=== PATIENT | male | born 1980 | race Caucasian/White ===

== ENCOUNTER 2020-02-10 08:29 | Outpatient (REF) | payer OTHER, SELFPAY ==
[2020-02-10 11:47] LABS: Alanine Aminotransferase 33 U/L (0-40); Albumin Level 4.5 g/dL (3.5-5.0); Alkaline Phosphatase 60 U/L (39-117); Anion Gap 12 (12-20); Aspartate Amino Transferase 32 U/L (5-37); Bilirubin Total 0.8 mg/dL (0.0-1.0); Blood Urea Nitrogen 15 mg/dL (9-16); Calcium 8.6 mg/dL (8.4-10.2); Carbon Dioxide 29 mmol/L (22-29); Chloride 107 mmol/L (96-108); Cholesterol 169 mg/dL; Estimated Glomerular Filt Rate > 60; Glucose Fasting 97 mg/dL (60-99); HDL Cholesterol 56 mg/dL; LDL Cholesterol Calculated 100 mg/dl; Potassium 4.4 mmol/l (3.3-5.1); Sodium 144 mmol/L (135-145); Total Protein 6.8 g/dL (6.5-8.0); Triglycerides 68 mg/dL
== END 2020-02-10 08:30 | disposition home or self-care (01) ==
LOC: HO.HMGCLDS 08:29
PROVIDERS: PCP Nurse Practitioner Family; Visit Provider Nurse Practitioner Family
DX: Z00.00 Encounter for general adult medical examination without abnormal findings (principal)
CPT/HCPCS: 80053; 80061; 82306; 84443

== ENCOUNTER 2020-09-11 12:28 | Outpatient (REF) | payer OTHER, SELFPAY ==
--- NOTE | ~2020-09-11 | XR_ITS ---
EXAMINATION: XR TIBIA AND FIBULA, RIGHT CLINICAL INFORMATION: Pain right lower leg COMPARISON: None TECHNIQUE: AP and lateral views of the right tibia and fibula were obtained. FINDINGS: There is no visible acute fracture, dislocation subluxation. No bony abnormality. The soft tissues are normal. Limit visualization of right knee joint and ankle joint appears unremarkable. XR/XR tibia fibula RT 2V IMPRESSION: Unremarkable right tibia and fibula.
== END 2020-09-11 12:29 | disposition home or self-care (01) ==
LOC: HO.HMGCX 12:28
PROVIDERS: PCP Nurse Practitioner Family; Visit Provider Nurse Practitioner Family
DX: M79.661 Pain in right lower leg (principal)
CPT/HCPCS: 73590

== ENCOUNTER 2021-07-08 08:36 | Outpatient (REF) | payer OTHER, SELFPAY ==
--- NOTE | ~2021-07-08 | XR_ITS ---
EXAMINATION: XR CHEST CLINICAL INFORMATION: Pleural effusion COMPARISON: None TECHNIQUE: 2 views of the chest were obtained. FINDINGS: No significant abnormality is noted involving the heart, lungs, mediastinum, bony thorax or soft tissues. XR/XR chest 2V IMPRESSION: No acute disease. No pleural effusion identified.
[2021-07-08 11:18] LABS: MANUAL DIFF FLAG NO
[2021-07-08 11:37] LABS: Basophils Percent Auto 0.9 % (0-2); Eosinophils Absolute Auto 0.2 X10*3/uL (0.0-0.4); Eosinophils Percent Auto 4.5 % (0-4); Hematocrit 46.4 % (42.0-52.0); Hemoglobin 15.6 g/dl (14.0-18.0); Imm Gran Abs Auto 0.01 X10*3/uL (0.00-0.03); Imm Gran Pct Auto 0.2 % (0.0-0.4); Lymphocytes Absolute Auto 1.6 X10*3/uL (1.2-4.9); Lymphocytes Percent Auto 35.3 % (20-40); Mean Corpuscular HGB Conc 33.6 g/dl (31.0-36.0); Mean Corpuscular Hemoglobin 30.7 pg (27.0-33.0); Mean Corpuscular Volume 91.3 fL (80.0-98.0); Mean Platelet Volume 10.1 fL (9.4-12.4); Monocytes Absolute Auto 0.5 X10*3/uL (0.1-1.2); Neutrophils Absolute Auto 2.3 x10*3/uL (2.0-8.3); Neutrophils Percent Auto 49.1 % (45-73); Platelet Count 254 X10*3/uL (160-400); Red Blood Count 5.08 X10*6/uL (4.60-5.80); Red Cell Distribution Width 11.9 % (11.0-16.0); White Blood Count 4.6 X10*3/uL (4.8-10.8)
[2021-07-08 12:34] LABS: Alanine Aminotransferase 26 U/L (0-40); Albumin Level 4.5 g/dL (3.5-5.0); Alkaline Phosphatase 73 U/L (39-117); Anion Gap 11 (12-20); Aspartate Amino Transferase 32 U/L (5-37); Bilirubin Total 0.4 mg/dL (0.0-1.0); Blood Urea Nitrogen 18 mg/dL (9-16); Calcium 9.7 mg/dL (8.4-10.2); Carbon Dioxide 28 mmol/L (22-29); Chloride 107 mmol/L (96-108); Estimated Glomerular Filt Rate > 60; Glucose Random 83 mg/dL (60-115); Potassium 4.3 mmol/L (3.3-5.1); Sodium 142 mmol/L (135-145); Total Protein 7.3 g/dL (6.5-8.0)
== END 2021-07-08 08:37 | disposition home or self-care (01) ==
LOC: HO.HMGCX 08:36
PROVIDERS: PCP Nurse Practitioner Family; Visit Provider Nurse Practitioner Family
DX: J90 Pleural effusion, not elsewhere classified (principal); S22.49XA Multiple fractures of ribs, unspecified side, initial encounter for closed fracture; X58.XXXA Exposure to other specified factors, initial encounter; Y93.9 Activity, unspecified; Y92.9 Unspecified place or not applicable; Y99.8 Other external cause status
CPT/HCPCS: 36415; 71046; 80053; 85025

== ENCOUNTER 2022-01-19 11:13 | Outpatient (REF) | payer OTHER, SELFPAY ==
[2022-01-19 14:14] LABS: Appearance Urine Clear; Color Urine Yellow; Glucose Urine UA Negative (Negative); Leukocyte Esterase Urine Trace (Negative); Nitrite Urine Negative (Negative); UMIC TRIGGER UACC YES; Urine Blood Negative (Negative); Urine Ketones Negative (Negative); Urine Protein Negative (Neg-Trace)
[2022-01-19 14:15] LABS: MANUAL DIFF FLAG NO
[2022-01-19 14:18] LABS: Bacteria Urine None Seen (None Seen); Hyaline Casts Urine 0-2 /LPF (0-2); RBC Urine 0-2 /HPF (0-2); Squamous Epithelial Cell Urine 0-2 /HPF (0-2); WBC Urine 0-5 /HPF (0-5)
[2022-01-19 14:22] LABS: Basophils Absolute Auto 0.1 X10*3/uL (0.0-0.2); Eosinophils Absolute Auto 0.2 X10*3/uL (0.0-0.4); Eosinophils Percent Auto 4.2 % (0-4); Hematocrit 42.9 % (42.0-52.0); Hemoglobin 14.6 g/dl (14.0-18.0); Imm Gran Abs Auto 0.01 X10*3/uL (0.00-0.03); Imm Gran Pct Auto 0.2 % (0.0-0.4); Lymphocytes Absolute Auto 1.8 X10*3/uL (1.2-4.9); Lymphocytes Percent Auto 37.6 % (20-40); Mean Corpuscular Hemoglobin 31.6 pg (27.0-33.0); Mean Corpuscular Volume 92.9 fL (80.0-98.0); Mean Platelet Volume 10.6 fL (9.4-12.4); Monocytes Absolute Auto 0.4 X10*3/uL (0.1-1.2); Monocytes Percent Auto 7.9 % (2-11); Neutrophils Absolute Auto 2.4 x10*3/uL (2.0-8.3); Neutrophils Percent Auto 49.1 % (45-73); Platelet Count 229 X10*3/uL (160-400); Red Blood Count 4.62 X10*6/uL (4.60-5.80); White Blood Count 4.8 X10*3/uL (4.8-10.8)
[2022-01-19 14:49] LABS: Alanine Aminotransferase 23 U/L (0-40); Albumin Level 4.5 g/dL (3.5-5.0); Alkaline Phosphatase 52 U/L (39-117); Anion Gap 13 (12-20); Aspartate Amino Transferase 27 U/L (5-37); Bilirubin Total 0.8 mg/dL (0.0-1.0); Blood Urea Nitrogen 24 mg/dL (9-16); Calcium 9.7 mg/dL (8.4-10.2); Carbon Dioxide 26 mmol/L (22-29); Chloride 106 mmol/L (96-108); Cholesterol 184 mg/dL; Estimated Glomerular Filt Rate > 60; Glucose Fasting 86 mg/dL (60-99); HDL Cholesterol 44 mg/dL; LDL Cholesterol Calculated 130 mg/dl; Potassium 4.5 mmol/L (3.3-5.1); Sodium 140 mmol/L (135-145); Total Protein 6.9 g/dL (6.5-8.0); Triglycerides 51 mg/dL
== END 2022-01-19 11:14 | disposition home or self-care (01) ==
LOC: HO.HMGCLDS 11:13
PROVIDERS: PCP Nurse Practitioner Family; Visit Provider Nurse Practitioner Family
DX: Z00.00 Encounter for general adult medical examination without abnormal findings (principal)
CPT/HCPCS: 36415; 80053; 80061; 81001; 84443; 85025

== ENCOUNTER 2023-04-12 17:56 | Emergency (ER) | payer OTHER, SELFPAY ==
--- NOTE | 2023-04-12 18:11 | ED.CHESTPAIN ---
HPI - Chest Pain General Chief Complaint: Chest Pain Stated Complaint: mild chest pain Time Seen by Provider: 04/12/23 22:12 Source: patient, RN notes reviewed and old records reviewed Mode of arrival: ambulatory Limitations: no limitations History of Present Illness HPI narrative: 43-year-old male presents for evaluation of chest pain. Patient reports mild left-sided chest pain for approximately last 3 days He denies any shortness of breath. His pain is constant, unrelated to exertion He describes the pain as dull, 04/19 He denies any personal history of cardiac disease, he is a nonsmoker Denies any recent travel He reports he was diagnosed with COVID-19 last month but felt as though he had improved from that Related Data Home Medications Medication Instructions Recorded Confirmed calcium carbonate 500 mg calcium 500 mg PO DAILY 07/08/21 01/19/22 (1,250 mg) chewable tablet (Calcium 500) cholecalciferol (vitamin D3) 25 25 mcg PO DAILY 07/08/21 01/19/22 mcg/drop (1,000 unit/drop) oral drops Previous Rx's Medication Instructions Recorded oseltamivir 75 mg capsule (Tamiflu) 75 mg PO BID 5 days #10 caps 03/22/22 Allergies Allergy/AdvReac Type Severity Reaction Status Date / Time No Known Allergies Allergy Verified 04/12/23 18:14 Review of Systems Constitutional: Constitutional: Denies chills and Denies fever(s) ENT: Denies sore throat Cardiovascular: Cardiovascular: Reports chest pain, Reports chest pain at rest and Denies dyspnea Respiratory: Respiratory: Denies cough and Denies dyspnea Gastrointestinal: Gastrointestinal: Denies abdominal pain, Denies nausea and Denies vomiting Musculoskeletal: Musculoskeletal: Denies back pain Integumentary/Breasts: Skin/Breast: Denies rash PMFSH Past Medical History Onset Date is defined in the Problem List Problems that require an onset date and time if occurred within 24 hrs of arrival to the ED Aortic Dissection and Rupture; Neurologic impairment; Cardiopulmonary Arrest; Endotracheal Intubation; Insertion or Replacement of Mechanical Circulatory Assist Device Medical History Physical exam Surgical History No pertinent past surgical history Family History Family History Father HTN (hypertension) Cancer of prostate Mother No problems noted. Brother No problems noted. Sister No problems noted. Social History Social History Housing: House Alcohol intake: current Alcohol intake frequency: holidays/special occasions only Patient Tobacco Use Status: Never used Tobacco e-Cigarette/Vaping Use: Never Used Second Hand Smoke Exposure: No Advance Directives: No Advance Directives Information Provided: No service: No Current occupational status: employed Cognitive needs: No Hearing needs: No Vision needs: No Physical Exam Vital Signs: Vital Signs: Last Vital Signs Temp 96.5 F L 04/12/23 18:12 Pulse 75 04/12/23 18:12 Resp 20 04/12/23 18:12 BP 144/82 H 04/12/23 18:12 Pulse Ox 99 04/12/23 18:12 O2 Del Method Room Air 04/12/23 18:12 BMI result Body Mass Index 30.6 Const: General: healthy appearing, comfortable, no acute distress, alert and awake Nutritional Appearance: well nourished Orientation/consciousness: patient oriented x3 HEENT: Head: Yes normocephalic and Yes atraumatic Eyes: Eyelids: Yes eyelids normal Conjunctivae: conjunctivae normal Sclerae: sclerae normal Corneas: corneas normal Pupils: Equal, round and reactive pupils present EOM: EOMs intact bilaterally Neck: Neck: Yes full ROM Chest: Other: Mild tenderness to palpation left anterior chest wall. No crepitus Resp: Effort & Inspection: normal respiratory effort, able to speak in complete sentences, no audible wheezes and not labored Auscultation: clear to auscultation bilaterally Cardio: Rate: regular rate Rhythm: regular rhythm Skin: General skin exam: elasticity normal Neuro: General: patient oriented x3 Cranial nerves: Yes Equal, round and reactive pupils present and Yes Bilaterally intact EOM present Cognition (Neuro): normal cognition Course Course Course Narrative: RME: 43 yo male w/no significant PMHx presenting to the ED c/o mild intermittent substernal chest pain, low HR at night per watch x 3 days. Admits had COVID at the beginning of March. denies SOB,LE edema, calf pain EKG, Labs, CXR ordered Full HPI, ROS and PE to be performed by primary ED provider. Medical Decision Making Medical Decision Making [facility] Narrative: 43-year-old healthy male with no risk factors for ACS presents for evaluation of chest pain. His symptoms started a few weeks after testing positive for COVID-19, this makes costochondritis a likely diagnosis. Despite 3 days of pain, his troponin is negative, his EKG is nonischemic, his chest x-ray is clear and his chest pain is also reproducible. He rules out for ACS. The patient is not tachycardic, hypoxic or tachypneic. He has no risk factors for PE. Patient stable for discharge at this time Differential Diagnosis Differential Diagnoses: The differential diagnosis associated with the presentation includes Chest pain Costochondritis Anxiety GERD Admission/Observation Consideration of admission/observation: Escalation of care including admission/observation considered 43-year-old male presents for evaluation chest pain, he was considered for admission but ultimately ruled out for ACS and was discharged Lab Data [facility] Lab Attestation statement: I reviewed the patient's lab results. No leukocytosis or anemia. No significant electrolyte abnormalities. The patient's BUN is just above normal at 22 with a normal creatinine of 1.30. Troponin nondetectable 04/12/23 18:07 04/12/23 18:07 Labs: Lab Results 04/12/23 04/12/23 Range/Units 18:07 20:31 WBC 7.6 (4.8-10.8) X10*3/uL RBC 5.44 (4.60-5.80) X10*6/uL Hgb 16.7 (14.0-18.0) g/dl Hct 48.3 (42.0-52.0) % MCV 88.8 (80.0-98.0) fL MCH 30.7 (27.0-33.0) pg MCHC 34.6 (31.0-36.0) g/dl RDW 12.3 (11.0-16.0) % Plt Count 253 (160-400) X10*3/uL MPV 9.4 (9.4-12.4) fL Immature Gran % (Auto) 0.1 (0.0-0.4) % Neut % (Auto) 58.9 (45-73) % Lymph % (Auto) 31.1 (20-40) % [place] % (Auto) 7.5 (2-11) % Eos % (Auto) 2.1 (0-4) % Baso % (Auto) 0.3 (0-2) % Lymph # (Auto) 2.4 (1.2-4.9) X10*3/uL [place] # (Auto) 0.6 (0.1-1.2) X10*3/uL Eos # (Auto) 0.2 (0.0-0.4) X10*3/uL Baso # (Auto) 0.0 (0.0-0.2) X10*3/uL Abs Immat Gran (auto) 0.01 (0.00-0.03) X10*3/uL Absolute Neuts (auto) 4.5 (2.0-8.3) x10*3/uL Absolute Nucleated RBC 0.000 (0.0-0.012) X10*3/uL Nucleated RBC % (auto) 0.0 (0.0-0.2) /100WBC Sodium 142 (135-145) mmol/L Potassium 4.4 (3.3-5.1) mmol/L Chloride 106 (96-108) mmol/L Carbon Dioxide 25 (22-29) mmol/L Anion Gap 15 (12-20) BUN 22 H (9-16) mg/dL Creatinine 1.30 (0.5-1.4) mg/dL Estim Creat Clear Calc 87.2 Estimated GFR > 60 Random Glucose 86 (60-115) mg/dL Calcium 10.3 H D (8.4-10.2) mg/dL Troponin I High Sens < 2.7 (<3.5-35.0) ng/L Influenza Type A (PCR) NEGATIVE (Negative) Influenza Type B (PCR) NEGATIVE (Negative) RSV RNA Qual (PCR) NEGATIVE (Negative) SARS-CoV-2 RNA (RT-PCR) NEGATIVE (Negative) Independent Interpretation I performed an independent interpretation of an: EKG (Normal sinus rhythm with a rate of [address] changes.) and Plain X-Ray (No infiltrate) Radiology Impression Discussion of test interpretation with radiology: I have reviewed the radiologist's reading. (No evidence of acute disease) Discharge Plan Discharge Clinical Impression: Chest pain, non-cardiac Patient Disposition: Home, Self-Care Instructions: Chest Pain (ED) Additional Instructions: Your workup in the emergency from today was reassuring. Include your blood work, chest x-ray, EKG You tested negative for influenza, COVID, RSV Follow-up with your primary doctor Return for new or worsening symptoms Prescriptions: No Action oseltamivir [Tamiflu] 75 mg capsule 75 mg PO BID 5 Days Qty: 10 0RF cholecalciferol (vitamin D3) 25 mcg/drop ( 1,000 unit/drop) drops 25 mcg PO DAILY calcium carbonate [Calcium 500] 500 mg calcium (1,250 mg) tablet,chewable 500 mg PO DAILY
[2023-04-12 18:12] VITALS: BP 144/82; PULSE 75; RESP 20; TEMP 35.8; O2SAT 99; BMI 30.6
[2023-04-12 22:36] VITALS: BP 131/77; PULSE 78; RESP 18; TEMP 36.7; O2SAT 98
== END 2023-04-12 22:46 | disposition home or self-care (01) ==
PROVIDERS: Emergency Provider Internal Medicine; PCP Nurse Practitioner Family
DX: R07.9 Chest pain, unspecified (principal); Z20.822 Contact with and (suspected) exposure to COVID-19; Z20.828 Contact with and (suspected) exposure to other viral communicable diseases
CPT/HCPCS: 0241U; 36415; 71046; 80048; 84484; 85025; 93005; 99283; 99284

== ENCOUNTER → 2023-04-12 17:58 | Outpatient (BNV) | payer OTHER, SELFPAY | PROVIDERS: Emergency Provider Internal Medicine; PCP Nurse Practitioner Family; Visit Provider Internal Medicine Cardiovascular Disease | DX: R07.9 Chest pain, unspecified (principal) | CPT/HCPCS: 93010 ==

== ENCOUNTER 2023-12-18 11:19 | Outpatient (AMB) | payer OTHER, SELFPAY ==
--- NOTE | 2023-12-18 11:25 | MHC.OFFWIV ---
Intake Vital Signs 12/18/23 11:26 Height 5 ft 10 in Weight 226 lb BMI 32.4 BP 114/80 Blood Pressure Location Rt brachial Position Sitting Pulse 63 Pulse Source Pulse Oximeter Temp 98.2 F Temp Source Oral Pulse Oximetry (%) 99 Oxygen Delivery Method Room Air Intake Visit Reasons: EP-lt ankle pain Intake Note: pt c/o LT ankle pain. Started last Monday. No known acute injury Patient Tobacco Use Status: Never used Tobacco Allergies No Known Allergies Allergy (Verified 12/18/23 11:26) Do you need a note to return to daycare/school/sports/work: No HPI HPI Comments History of Present Illness Details Patient presents to the walk-in today for sick visit Reports he started having left ankle pain one-week ago 5 days ago he ran a marathon in pain worsened, since then he has not been able to get the pain under control He has an appointment with an ankle specialist but they were not able to see him until next month. Requesting to have x-ray completed He has been taking 800 mg of ibuprofen with improvement of his symptoms Also using lace-up compression ankle support brace which allows him to ambulate [facility] Medical History Physical exam Surgical History No pertinent past surgical history Family History Father HTN (hypertension) Cancer of prostate Mother No problems noted. Brother No problems noted. Sister No problems noted. Social History Housing: House Alcohol intake: current Alcohol intake frequency: holidays/special occasions only Patient Tobacco Use Status: Never used Tobacco e-Cigarette/Vaping Use: Never Used Second Hand Smoke Exposure: No service: No Current occupational status: employed Cognitive needs: No Hearing needs: No Vision needs: No Review of Systems Const All systems reviewed & are unremarkable except as noted in HPI and below Physical Exam Vital Signs: Last Vital Signs Temp 98.2 F 12/18/23 11:26 Pulse 63 12/18/23 11:26 BP 114/80 12/18/23 11:26 Pulse Ox 99 12/18/23 11:26 Oxygen Delivery Method Room Air 12/18/23 11:26 BMI result Body Mass Index 32.4 General: awake, alert, oriented. Answers questions appropriately. Fully engaged in examination. Skin: warm, dry, intact HEENT: Normocephalic. Hearing intact. Cardiac: External chest normal in appearance. Respiratory: No cough, audible wheezing or stridor. Abdomen: without gross distension. MS: No obvious swelling or deformities. Left ankle: Tenderness posterior lateral malleolus. Neurological: Oriented to person, place, time and situation. Thought process intact. No gait abnormalities appreciated. Psychiatric: Appropriate mood and affect. Good judgment and insight. Results Reviewed Results Reviewed: X-ray ordered and independently reviewed: No fracture dislocation Assessment & Plan Assessment & Plan (1) Left ankle pain: Code(s): M25.572 - Pain in left ankle and joints of left foot Plan X-ray ordered independently reviewed: No fracture or dislocation. Continue with ibuprofen as needed Continue using ankle brace as needed Follow up with specialist as planned Follow up with PCP or return here for any new or worsening symptoms Orders: Orders XR ankle LT min 3V Today M25.572 - Pain in left ankle and joints of left foot Coding Level of Care Code Est Pt Level 4 (37322) Diagnoses Left ankle pain M25.572
[2023-12-18 11:26] VITALS: BP 114/80; PULSE 63; TEMP 36.8; O2SAT 99; BMI 32.4
== END 2023-12-18 12:27 | disposition home or self-care (01) ==
PROVIDERS: PCP Nurse Practitioner Family; Visit Provider Registered Nurse Emergency
DX: M25.572 Pain in left ankle and joints of left foot (principal)
CPT/HCPCS: 99214

== ENCOUNTER 2023-12-18 11:57 | Outpatient (REF) | payer OTHER, SELFPAY ==
--- NOTE | ~2023-12-18 | XR_ITS ---
EXAMINATION: XR ANKLE, LEFT CLINICAL INFORMATION: Pain. COMPARISON: Radiograph right tibia/fibula 09/11/2020. TECHNIQUE: AP, lateral, and mortise views of the left ankle. FINDINGS: No acute fracture or dislocation. Small calcaneal spurs. No significant soft tissue abnormality. XR/XR ankle LT min 3V IMPRESSION: 1. No acute fracture or dislocation. 2. Small calcaneal spurs. Electronically signed by: Aurora Frost MD 12/18/2023 12:48 PM EDT
== END 2023-12-18 11:58 | disposition home or self-care (01) ==
LOC: HO.HMGCX 11:57
PROVIDERS: PCP Nurse Practitioner Family; Visit Provider Registered Nurse Emergency
DX: M25.572 Pain in left ankle and joints of left foot (principal)
CPT/HCPCS: 73610

== ENCOUNTER 2024-03-28 13:04 | Outpatient (REF) | payer OTHER, SELFPAY ==
--- OUTSIDE RECORDS SUMMARY | 2024-03-28 14:34 | XMS_ITS | Patient Health Record ---
Author Organization [facility] Address [address] Care Team Providers Care Irrigationist Name Role Phone AdryanchynaUmang Primary Care Provider JOSE Ridley Unavailable [phone] ALLERGIES No Known Allergies REASON FOR REFERRAL No Information MEDICATIONS Medication SIG (Take, Route, Frequency, Duration) Notes Start Date End Date Status Calcium Carbonate 500 mg PO Daily Not-Taking Cholecalciferol 25 MCG (1000 UT) 1 capsule Orally Once a day Not-Taking VITAL SIGNS Heart Rate 77 /min 02/27/2024 Temperature 97.2 degrees Fahrenheit 02/27/2024 Respiratory Rate 16 /min 02/27/2024 Height 5ft 10in in 02/27/2024 Weight 209.0 lbs 02/27/2024 BMI 29.99 kg/m2 02/27/2024 Encounters Encounter Location Date Provider Diagnosis [facility] [address] 01/12/2024 JOSE VALENZUELA [facility] [address] 02/27/2024 JOSE VALENZUELA Peroneal tendinitis of left lower extremity M76.72 and Subluxation of peroneal tendon of left foot S93.332A [facility] [address] [id number] 12/15/2023 JOSE VALENZUELA ASSESSMENTS Encounter Date Diagnosis Assessment Notes Treatment Notes Treatment Clinical Notes Section Notes 02/27/2024 Peroneal tendinitis of left lower extremity (ICD-10 - M76.72) 02/27/2024 Subluxation of peroneal tendon of left foot (ICD-10 - S93.332A) Patient examined and evaluated today. Four weightbearing radiographs were taken of the left foot and ankle and reviewed with the patient. No acute osseous changes noted. He seems to have some tenderness along the peroneal tendons on the left. No weakness or edema. 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 I discussed with him that this can create irritation around the tendons. I reviewed conservative treatment with PT, bracing, and NSAIDs as needed. I advised that if the pain persists or worsens, further imaging is helpful. I do not see any red flags that would keep him from skiing. I just advised he be cautious about the subluxations. He has been noticing improvement over the last few weeks and will advance his activity. He will let me know if he notices any regression or issues. He otherwise can follow back as needed. PLAN OF TREATMENT Pending Test Test Name Order Date X ray : Foot, left 3v 02/27/2024 Insurance Providers Payer Name Payer Address Payer Phone Subscriber Number Group Number Insured Name Patient Relationship to Insured Coverage Start Date Coverage End Date [address] [place] [phone] [id number] Polo Jain Self - patient is the insured MEDICAL (GENERAL) HISTORY Medical History History ICD Code asthma COVID vaccinated X 3 Hospitalization History Reason Date(Month/Year) fractured 5 ribs and puncture lung sofia rosario 2021
--- OUTSIDE RECORDS SUMMARY | 2024-03-28 14:34 | XMS_ITS ---
Author Organization [facility] Address [address] [place] [address] Care Team Providers Care Glass Technologist Name Role Phone AyserafiqUmang clemente Primary Care Provider SUE Ridley Unavailable [phone] ALLERGIES No Known Allergies REASON FOR VISIT Patient injured his left foot at the start of Jan and his foot got better but now there is a constant pain MEDICATIONS Medication SIG (Take, Route, Frequency, Duration) Notes Start Date End Date Status Calcium Carbonate 500 mg PO Daily Not-Taking Cholecalciferol 25 MCG (1000 UT) 1 capsule Orally Once a day Not-Taking VITAL SIGNS Weight 209.0 lbs 02/27/2024 Height 5ft 10in in 02/27/2024 BMI 29.99 kg/m2 02/27/2024 Heart Rate 77 /min 02/27/2024 Temperature 97.2 degrees Fahrenheit 02/27/20 24 Respiratory Rate 16 /min 02/27/2024 Encounters Encounter Location Date Provider Diagnosis [facility] [address] [address] 02/27/2024 SUE VALENZUELA Peroneal tendinitis of left lower extremity M76.72 and Subluxation of peroneal tendon of left foot S93.332A ASSESSMENTS Encounter Date Diagnosis Assessment Notes Treatment [...] follow back as needed. PLAN OF TREATMENT Treatment Notes Assessment Notes Subluxation of peroneal tend on of left foot Patient examined and evaluated today. Fo ur weightbearing radiographs were taken of the left [...] He otherwise can follow back as needed. Pending Test Test Name Order Date X ray : Foot, left 3v 02/27/2024 Progress Notes * Polo JAINDOB:1980 (44 yo M)Acc No.[id number]:02/27/2024 Consult note Patient:??Polo JAIN Provider:??Sue Blair DPM :1980?Age:44 Y?Sex:Cheri leonardo Date:02/27/2024 Phone: Address:[address] [place] [address] [address] [place], [place] Pcp:Umang Huber Subjective: * Chief Complaints: * ?Patient injured his le ft foot at the start of Jan and his foot got better but now there is a constant pain * HPI: ?Foot & Ankle:? Mr. Jain is a pleasant 44 year old male who presents for a consultation. He has been having some issues with his left foot/ankle since . He states it seemed to start after running. He denies any specific traumatic injury that triggered it. He states he has had many inversion like ankle sprains in the past, but nothing severe. He states the pain was localized around the outer aspect of the ankle and into the foot. He denies any discoloration or swelling associated with the pain. He took a rest from running and noticed that the pain did slowly get better. He decided to start running again and used an ankle brace for caution, but found that this seemed to exacerbate the pain to a point in which he felt pain into the bottom of the foot. He stopped wearing the brace and found some relief. He states he has slowly been returning to high impact activity and has noticed the overall discomfort seems to be getting better. He is an avid race skier and wants to make sure there isn't anything that could potentially get worse with his ski season starting. He does admit that he has always been able to make the tendons on the side of both ankles pop with certain movements. This has never been bothersome in the past for him. He admits to a remote injury to his heel that caused a palpable bump for awhile, but can not remember which heel it happened to. It has since healed and is not bothersome. * ROS:?General/Constitutional:?Denies??Chills.??Denies??Fatigue.??Denies??Fever.??Denies??Headache. ?Allergy/Immunology:?Denies??Hives.??Denies??Itching.??Denies??Rash.?Endocrine:?Denies??Excessive sweating.??Denies??Excessive thirst.??Denies??Frequent urination.?Respiratory:?Denies??Cough.??Denies??Shortness of breath,??denies.??Denies??Wheezing.?Cardiovascular:?Denies??Chest pain.??Denies??Claudication.??Denies??Cyanosis.?Gastrointestinal:?Denies??Abdominal pain.??Denies??Constipation.??Denies??Diarrhea.?Hematology:?Denies??Bleeding problems,??denies.??Denies??Easy bruising,??denies.??Denies??Swollen glands.?Musculoskeletal:?Patient complaining of??left foot/ankle pain, improving.??Denies??Leg cramps.??Denies??Limping gait.??Denies??Swollen joints.?Peripheral Vascular:?Denies??Blanching of skin.??Blood clots in legs??Denies.??Denies??Cold extremities.?Skin:?Denies??Masses.??Denies??Nail changes.??Denies??Skin lesion(s).?Neurologic:?Denies??Paralysis.??Denies??Tingling/Numbness.??Denies??Tremor.?Psychiatric:?Denies??Auditory/visual hallucinations.??Denies??Delusions.??Denies??Suicidal thoughts.? * Medical History:?? * Surgical History:??Denies Beto sandoval Surgical History * Hospitalization/Major Diagno stic Procedure:??fractured 5 ribs and puncture lung skiing 2021 * Family History:??Father: dec eased, hypertension, prostate cancer.??Mother: hypertension, arthritis.?? * Social History:?Tobacco: never alcohol: special occasions/holidays. * Medications:??Not-TakingChol ecalciferol 25 MCG (1000 UT) Capsule 1 capsule Orally Once a day Calcium Carbonate , Notes to Pharmacist: 500 mg PO DailyMedication List reviewed and reconciled with the patientNot-Taking Cholecalciferol 25 MCG (1000 UT) Capsule 1 capsule Orally Once a day Not-Taking Calcium Carbonate , Notes to Pharmacist: 500 mg PO DailyMedication List reviewed and reconciled with the patient * Allergies:??N.K.D.A.no[Aller gies Verified] Objective: * Vitals:??Wt:209.0lbs, Ht: 5f t 10in, BMI:29.99Index, HR:77/min, Temp:97.2F, RR:16/min, Ht-cm: 177.8, Wt-k.8 kg. * Examination: ?General Examination: ?This is a middle aged male. Alert and oriented today and in no acute distress. Patient comes in ambulating in sneakers without using any assistive devices. Breathing is regular and unlabored while sitting. Affect is pleasant and cooperative. No unusual anxiety or depression noted. Hearing intact to spoken word. No evidence of visual impairment that would impact self care or ambulation. Patient has palpable dorsalis pedis and posterior tibial pulse bilaterally. No varicosities visualized. Capillary refill is less than 3 seconds to all digits bilaterally. Light touch sensation is symmetrical to all lower extremity dermatomes. Babinski is downgoing. Skin has normal turgor and texture. There are no open wounds, rashes, or lesions noted. Mild tenderness along the left peroneal tendons just distal to the lateral malleolus. There is no edema or erythema. No pain with pressure to the left peroneals posterior to the fibula. He has active subluxation with eversion dorsiflexion of the peroneals. Subtalar and ankle joint range of motion are unrestricted and nonpainful. 5/5 strength for anterior, posterior, and lateral lower extremity muscle groups on the left and right. No muscle atrophy noted. Therapeutic Interventions: Assessment: * Assessment: 1.??Peroneal tendinitis of l eft lower extremity - M76.72 (Primary)??2.??Subluxation of peroneal tendon of left foot - S93.332A?? Plan: * Treatment: 2.??Subluxation of peroneal tendon of left foot?Imaging: X ray : Foot, left 3v Notes: Patient examined and evaluated today. Four weightbearing [...] He otherwise can follow back as needed. ? * Procedures:?LEFT FOOT AND ANKLE RADIOGRAPHS 02/27/2024 4 weight bearing views (AP, LAT, LO PROJECTION/MO VIEW, AP ANKLE) Taken in the office and read by the physician. Osseous mineralization is age appropriate. There are no acute fractures or dislocations. No abnormal bone lesions or tumors. Joint spaces appear preserved throughout. There is odd irregularity to the anterior process region of the calcaneus, this may be from old injury vs variant vs angle of the radiographs. No radio opaque foreign bodies or soft tissue calcifications. ? * Procedure Codes:??32986 X-RA Y EXAM OF FOOT 3 Views, Modifiers: LT * Billing Information: * Visit Code:?? 73730 Office Visit, New Pt., Level 3. * Procedure Codes:?? 19277 X-RAY EXAM OF FOOT 3 Views. Modifiers: LT * Sign off status: Completed true * Provider:??Sue Blair DPM Date:?? History and Physical Notes * Examination Category Sub-Category Detail Notes Category Not es General Examination This is a middle aged male. Alert and oriented today and in no acute distress. Patient comes in ambulating in sneakers without using any assistive devices. Breathing is regular and unlabored while sitting. Affect is pleasant and cooperative. No unusual anxiety or depression noted. Hearing intact to spoken word. No evidence of visual impairment that would impact self care or ambulation. Patient has palpable dorsalis pedis and posterior tibial pulse bilaterally. No varicosities visualized. Capillary refill is less than 3 seconds to all digits bilaterally. Light touch sensation is symmetrical to all lower extremity dermatomes. Babinski is downgoing. Skin has normal turgor and texture. There are no open wounds, rashes, or lesions noted. Mild tenderness along the left peroneal tendons just distal to the lateral malleolus. There is no edema or erythema. No pain with pressure to the left peroneals posterior to the fibula. He has active subluxation with eversion dorsiflexion of the peroneals. Subtalar and ankle joint range of motion are unrestricted and nonpainful. 5/5 strength for anterior, posterior, and lateral lower extremity muscle groups on the left and right. No muscle atrophy noted.
--- OUTSIDE RECORDS SUMMARY | 2024-03-28 14:34 | XMS_ITS ---
Author Organization [facility] Address [address] [address] Care Team Providers Care Network Operations Center Engineer Name Role Phone GabrielletripUmang Primary Care Provider JOSE Ridley Unavailable [phone] REASON FOR VISIT Medical Records Encounters Encounter Location Date Provider Diagnosis [facility] [address] [address] 12/15/2023 JOSE VALENZUELA PLAN OF TREATMENT No Information Progress Notes * Polo JAINDOB:1980 (43 yo M)Acc No.[id number]:12/15/2023 Patient:??Polo JAIN :1980?Age:43 Y?Sex:Cheri leonardo Phone: Address:[address] [place] [address] * true * Date:??
--- OUTSIDE RECORDS SUMMARY | 2024-03-28 14:34 | XMS_ITS ---
Author Organization [facility] Address [address] [address] Care Team Providers Care Manager Pool Name Role Phone Umang Huber Primary Care Provider UnavailSUE Bundy Unavailable [phone] ALLERGIES No Known Allergies REASON FOR VISIT Lt foot pain, ?'s possible torn tendon MEDICATIONS Medication SIG (Take, Route, Frequency, Duration) Notes Start Date End Date Status Cholecalciferol 25 MCG (1000 UT) 1 capsule Orally Once a day Active Calcium Carbonate 500 mg PO Daily Active Encounters Encounter Location Date Provider Diagnosis [facility] [address] [address] 01/12/2024 SUE VALENZUELA PLAN OF TREATMENT No Information Progress Notes * Polo JAINDOB:1980 (44 yo M)Acc No.[id number]:01/12/2024 Consult note Patient:??KEVIN Polo Provider:??Sue Blair DPJuliet :1980?Age:43 Y?Sex:Ma le Date:01/12/2024 Phone: Address:[address] [place], [place] Pcp:Umang Huber Subjective: * Chief Complaints: * ?1. Lt foot pain, ?'s p ossible torn tendon. * Medical History:??Physical e xam. * Surgical History:??Denies Pa Surgical History. * Hospitalization/Major Diagno stic Procedure:??Denies Past Hospitalization. * Family History:??Father: dec eased, hypertension, prostate cancer.?? * Social History:?Tobacco: never alcohol: special occasions/holidays. * Medications:??Taking Choleca lciferol 25 MCG (1000 UT) Capsule 1 capsule Orally Once a day , Taking Calcium Carbonate , Notes to Pharmacist: 500 mg PO Daily * Allergies:??N.K.D.A. Objective: Therapeutic Interventions: Assessment: Plan: * Treatment: * Billing Information: * Visit Code:?? * Procedure Codes:?? * Sign off status: Pending * Provider:??Sue Blair DPM Date:??07/2023
[2024-03-28 17:40] LABS: Influenza A PCR NEGATIVE (Negative); Influenza B PCR NEGATIVE (Negative); Resp Syncy Virus RNA Qual PCR NEGATIVE (Negative); SARS COV2 PCR INHOUSE NEGATIVE (Negative)
== END 2024-03-28 13:05 | disposition home or self-care (01) ==
LOC: HO.LAB 13:04
PROVIDERS: PCP Nurse Practitioner Family; Visit Provider Physician Assistant
DX: J22 Unspecified acute lower respiratory infection (principal)
CPT/HCPCS: 0241U

== ENCOUNTER 2024-03-28 13:04 | Outpatient (AMB) | payer OTHER, SELFPAY ==
[2024-03-28 14:15] VITALS: BP 140/80; PULSE 92; TEMP 39.3; O2SAT 97; BMI 32.4
--- NOTE | 2024-03-28 14:15 | AM.OFFWIN_ITS ---
Intake Vital Signs 03/28/24 14:15 Height 5 ft 10 in Weight 226 lb BMI 32.4 BP 140/80 H Blood Pressure Location Lt brachial Position Sitting Pulse 92 Pulse Source Pulse Oximeter Temp 102.7 F H Temp Source Oral Pulse Oximetry (%) 97 Oxygen Delivery Method Room Air Intake Visit Reasons: EP cough, fever, congestion [phone] Intake Note: Pt is here today for fever, cough, congestion and bronchitis since last Monday. Patient Tobacco Use Status: Never used Tobacco Allergies No Known Allergies Allergy (Verified 03/28/24 14:16) Do you need a note to return to daycare/school/sports/work: No HPI HPI Comments History of Present Illness Details History The patient is a 44-year-old male presenting with fever and respiratory discomfort. The patient reports the onset of fever 6 days ago, with temperatures ranging between 101?F and 100?F, which persist unless acetaminophen and ibuprofen are taken concurrently. The patient has not tested positive for COVID- 19, having conducted tests at home, and attributes the symptoms to either bronchitis or the flu. The patient reports using albuterol three to four times daily to manage symptoms, which include significant chest pain upon deep breathing and cough. This chest pain restricts the patient to shallow breathing. The patient has a history of asthma, although medication has not been required regularly for some time, and no history of smoking. The patient reported a pleural effusion following a trauma incident but has no chronic lung issues apart from asthma. In addition to the primary symptoms, the patient has experienced fatigue and headaches, exacerbated by persistent fever, reducing fluid intake today, although previously adequate. Physical Exam General: Cooperative, healthy appearing, comfortable and no acute distress Orientation/consciousness: Patient oriented x3 Limitations: No limitations Head: Normal to inspection Ears: Hearing grossly normal bilaterally, external ears normal and TM's normal bilaterally, right ear has cerumen Nose: Normal external nose present, Normal nares present and No nasal discharge present Face and sinus: Normal facial exam and Yes sinuses nontender, slight sinus pain noted Mouth: Normal oral and palatal mucosa present and moist mucous membranes Throat: Yes tonsils normal, Yes uvula midline. Posterior oropharynx erythema Eyes: Appearance normal, both eyes and all related structures Neck: Normal visual inspection Respiratory: Clear but dim to auscultation bilaterally. Normal respiratory effort, able to speak in complete sentences, Actively coughing, no respiratory distress, not tachypneic, no tripod positioning and no use of accessory muscles, shallow breathing noted Cardiovascular: Regular rate and rhythm. Normal S1 and S2, heart rate recorded at 92 Skin: No rashes or lesions noted Neuro: Patient oriented x3 Extremities: Normal to inspection and Yes no clubbing, cyanosis or edema [facility], [facility] Medical History (Updated 03/28/24 @ 14:31 by Lissy Floyd PA-C) Subluxation of peroneal tendon of left foot Peroneal tendonitis Physical exam Surgical History No pertinent past surgical history Family History Father HTN (hypertension) Cancer of prostate Mother No problems noted. Brother No problems noted. Sister No problems noted. Social History Housing: House Alcohol intake: current Alcohol intake frequency: holidays/special occasions only Patient Tobacco Use Status: Never used Tobacco e-Cigarette/Vaping Use: Never Used Second Hand Smoke Exposure: No service: No Current occupational status: employed Cognitive needs: No Hearing needs: No Vision needs: No Review of Systems Const All systems reviewed & are unremarkable except as noted in HPI and below Physical Exam Vital Signs: Last Vital Signs Temp 102.7 F H 03/28/24 14:15 Pulse 101 H 03/28/24 14:15 BP 140/80 H 03/28/24 14:15 Pulse Ox 97 03/28/24 14:15 Oxygen Delivery Method Room Air 03/28/24 14:15 BMI result Body Mass Index 32.4 Assessment & Plan Assessment & Plan (1) Lower respiratory infection (e.g., bronchitis, pneumonia, pneumonitis, pulmonitis): Code(s): J22 - Unspecified acute lower respiratory infection Plan: Plan - Conduct a chest X-ray to assess for possible pneumonia due to the history of p leural effusion and prolonged sickness with history of asthma - Initiate azithromycin treatment, given its dual antibiotic and anti- inflammatory properties, to address both bacterial and potential viral components of bronchitis - Continue current antipyretic regimen, ensuring maximum daily dosage of acetaminophen does not exceed 3 grams - Advise maintaining adequate hydration to counteract insensible fluid losses from fever - Await results from flu, COVID, and RSV tests; further management to be determined based on these results, including potential adjustment of antibiotic therapy if pneumonia is confirmed or if viral etiology is ruled out - Encourage the patient to monitor symptoms closely and seek further evaluation if condition deteriorates or new symptoms arise Patient was informed and verbally consented to the use of an ambient scribe for clinic note documentation during this visit Orders: Orders SARS-CoV2/FLU/RSV Today J22 - Unspecified acute lower respiratory infection XR chest 2V Today R05.9 - Cough, unspecified Medications: New azithromycin For 250 mg dose pack: take 500 mg today (day 1), then 250 mg for 4 days (days 2-5) PO 6 tabs 0RF Coding Level of Care Code Est Pt Level 4 (67999) Diagnoses Lower respiratory infection (e.g., bronchitis, pneumonia, pneumonitis, pulmonitis) J22
== END 2024-03-28 14:34 | disposition home or self-care (01) ==
PROVIDERS: PCP Nurse Practitioner Family; Visit Provider Physician Assistant
DX: J22 Unspecified acute lower respiratory infection (principal)

== ENCOUNTER 2024-03-28 14:33 | Outpatient (REF) | payer OTHER, SELFPAY ==
--- NOTE | ~2024-03-28 | XR_ITS ---
EXAMINATION: XR CHEST CLINICAL INFORMATION: R05.9 - Cough, unspecified COMPARISON: Chest radiograph 04/12/2023 TECHNIQUE: PA and lateral views of the chest were obtained. FINDINGS: The lungs are well expanded. Right perihilar dense opacity, new from prior. Trace left pleural effusion. No pulmonary edema or pneumothorax. The cardiomediastinal silhouette is within normal limits for technique and unchanged. No acute osseous abnormality. XR/XR chest 2V IMPRESSION: Right perihilar dense opacity, new from prior. Findings are concerning for pneumonia. Electronically signed by: Maty Delarosa DO 03/28/2024 03:52 PM [facility]
== END 2024-03-28 14:34 | disposition home or self-care (01) ==
LOC: HO.HMGCX 14:33
PROVIDERS: PCP Nurse Practitioner Family; Visit Provider Physician Assistant
DX: R05.9 Cough, unspecified (principal)
CPT/HCPCS: 71046

== ENCOUNTER 2024-06-08 09:31 | Outpatient (AMB) | payer OTHER, SELFPAY ==
--- OUTSIDE RECORDS SUMMARY | 2024-06-08 09:33 | XMS_ITS ---
Author Organization [facility] Address [address] [address] Care Team Providers Care Rn Transition Name Role Phone Umang Huber Primary Care Provider UnavailSUE Bundy Unavailable [phone] Allergies No Known Allergies REASON FOR VISIT Lt foot pain, ?'s possible torn tendon Medications Medication SIG (Take, Route, Frequency, Duration) Notes Start Date End Date Status Cholecalciferol 25 MCG (1000 UT) 1 capsule Orally Once a day Active Calcium Carbonate 500 mg PO Daily Active Encounters Encounter Location Date Provider Diagnosis [facility] [address] [address] 01/12/2024 SUE VALENZUELA Plan Of Treatment No Information Progress Notes * Polo JAINDOB:1980 (44 yo M)Acc No.[id number]:01/12/2024 Consult note Patient:?Polo JAIN Provider:?Sue Blair DPM :1980???Age:43 Y???Sex:Male Audie e:01/12/2024 Phone: Address:[address] [place] [address] [place], [place] Pcp:Umang Huber Subjective: * Chief Complaints: * ???1. Lt foot pain, ?'s poss ible torn tendon. * Medical History:?Physical ex am. * Surgical History:?Denies Pas t Surgical History. * Hospitalization/Major Diagno stic Procedure:?Denies Past Hospitalization. * Family History:?Father: dece ased, hypertension, prostate cancer.? * Social History:?Tobacco: never alcohol: special occasions/holidays. * Medications:?Taking Cholecal ciferol 25 MCG (1000 UT) Capsule 1 capsule Orally Once a day , Taking Calcium Carbonate , Notes to Pharmacist: 500 mg PO Daily * Allergies:?N.K.D.A. Objective: * Vitals:? Therapeutic Interventions: Assessment: Plan: * Treatment: * Billing Information: * Visit Code:? * Procedure Codes:? * Electronic signature of RAOUL VALENZUELA D.P.M. on 06/08/2024 at 09:33 AM EST Sign off status: Pending * Provider:?Sue Blair DPJuliet Date:?01/11 Generated for Skip mclean/Margoth/Antoniaitting on:?06/08/2024 09:33 AM EST
--- OUTSIDE RECORDS SUMMARY | 2024-06-08 09:33 | XMS_ITS | Patient Health Record ---
Author Organization [facility] Address [address] [address] Care Team Providers Care Senior Maintenance Mechanic Name Role Phone AdryanUmang clemente Primary Care Provider JOSE Ridley Unavailable [phone] Allergies No Known Allergies Reason For Referral No Information Medications Medication SIG (Take, Route, Frequency, Duration) Notes Start Date End Date Status Calcium Carbonate 500 mg PO Daily Not-Taking Cholecalciferol 25 MCG (1000 UT) 1 capsule Orally Once a day Not-Taking Vital Signs Heart Rate 77 /min 02/27/2024 Temperature 97.2 degrees Fahrenheit 02/27/2024 Respiratory Rate 16 /min 02/27/2024 Height 5ft 10in in 02/27/2024 Weight 209.0 lbs 02/27/2024 BMI 29.99 kg/m2 02/27/2024 Encounters Encounter Location Date Provider Diagnosis [facility] [address] [address] 02/27/2024 JOSE VALENZUELA Peroneal tendinitis of left lower extremity M76.72 and Subluxation of peroneal tendon of left foot S93.332A [facility] [address] [address] 12/15/2023 JOSE VALENZUELA Assessments Encounter Date Diagnosis (ICD Code) Assessment Notes Treatment Notes Treatment Clinical Notes [...] He otherwise can follow back as needed. Plan Of Treatment Pending Test Test Name Order Date X ray : Foot, left 3v 02/27/2024 Insurance Providers Payer Name Payer Address Payer Phone Subscriber Number Group Number Insured Name Patient Relationship to Insured Coverage Start Date Coverage End Date [facility] [address] [place] [address] [id number] Polo Jain Self - patient is the insured Medical (General) History Medical History History ICD Code asthma COVID vaccinated X 3 Hospitalization History Reason Date(Month/Year) fractured 5 ribs and puncture lung sofia rosario 2021
--- OUTSIDE RECORDS SUMMARY | 2024-06-08 09:33 | XMS_ITS ---
Author Organization [facility] Address [address] [place] [address] Care Team Providers Care [place] Guide Name Role Phone Umang Huber Primary Care Provider SUE Ridley Unavailable [phone] Allergies No Known Allergies REASON FOR VISIT Patient injured his left foot at the start of Jan and his foot got better but now there is a constant pain Medications Medication SIG (Take, Route, Frequency, Duration) Notes Start Date End Date Status Calcium Carbonate 500 mg PO Daily Not-Taking Cholecalciferol 25 MCG (1000 UT) 1 capsule Orally Once a day Not-Taking Vital Signs Temperature 97.2 degrees Fahrenheit 02/27/20 24 Heart Rate 77 /min 02/27/2024 Respiratory Rate 16 /min 02/27/2024 Height 5ft 10in in 02/27/2024 Weight 209.0 lbs 02/27/2024 BMI 29.99 kg/m2 02/27/2024 Encounters Encounter Location Date Provider Diagnosis [facility] [address] [address] 02/27/2024 SUE VALENZUELA Peroneal tendinitis of left lower extremity M76.72 and Subluxation of peroneal tendon of left foot S93.332A Assessments Encounter Date Diagnosis (ICD Code) Assessment [...] follow back as needed. Plan Of Treatment Treatment Notes Assessment Notes Subluxation of peroneal [...] Notes * Polo JAINDOB:1980 (44 yo M)Acc No.[id number]:02/27/2024 Consult note Patient:?Polo JAIN Provider:?Sue Blair DPM :1980???Age:44 Y???Sex:Male Audie e:02/27/2024 Phone: Address:[address] [place], [place] [address], [place] Pcp:Umang Huber Subjective: * Chief Complaints: * ???Patient injured his left foot at the start of Jan and his foot got better but now there is a constant pain * HPI: ???Foot & Ankle:? Mr. Jain is a pleasant [...] since healed and is not bothersome. * ROS:?General/Constitutional:?Denies?Chills.?Denies?Fatigue.?Denies?Fever.?Denies?Headache.?Allergy/Immunology:?Denies?Hives.?Denies?Itching.?Denies?Rash.?Endocrine:?Denies?Excessive sweating.?Denies?Excessive thirst.?Denies?Frequent urination.?Respiratory:?Denies?Cough.?Denies?Shortness of breath,?denies.?Denies?Wheezing.?Cardiovascular:?Denies?Chest pain.?Denies?Claudication.?Denies?Cyanosis.?Gastrointestinal:?Denies?Abdominal pain.?Denies?Constipation.?Denies?Diarrhea.?Hematology:?Denies?Bleeding problems,?denies.?Denies?Easy bruising,?denies.?Denies?Swollen glands.?Musculoskeletal:?Patient complaining of?left foot/ankle pain, improving.?Denies?Leg cramps.?Denies?Limping gait.?Denies?Swollen joints.?Peripheral Vascular:?Denies?Blanching of skin.?Blood clots in legs?Denies.?Denies?Cold extremities.?Skin:?Denies?Masses.?Denies?Nail changes.?Denies?Skin lesion(s).?Neurologic:?Denies?Paralysis.?Denies?Tingling/Numbness.?Denies?Tremor.?Psychiatric:?Denies?Auditory/visual hallucinations.?Denies?Delusions.?Denies?Suicidal thoughts.? * Medical History:? * Surgical History:?Denies Pas t Surgical History * Hospitalization/Major Diagno stic Procedure:?fractured 5 ribs and puncture lung skiing 2021 * Family History:?Father: dece ased, hypertension, prostate cancer.?Mother: hypertension, arthritis.? * Social History:?Tobacco: never alcohol: special occasions/holidays. * Medications:?Not-TakingChole calciferol 25 MCG (1000 UT) Capsule 1 capsule Orally Once a day Calcium Carbonate , Notes to Pharmacist: 500 mg PO DailyMedication List reviewed and reconciled with the patientNot-Taking Cholecalciferol 25 MCG (1000 UT) Capsule 1 capsule Orally Once a day Not-Taking Calcium Carbonate , Notes to Pharmacist: 500 mg PO DailyMedication List reviewed and reconciled with the patient * Allergies:?N.K.D.A.no[Allerg ies Verified] Objective: * Vitals:?Wt:209.0lbs, Ht: 5ft 10in, BMI:29.99Index, HR:77/min, Temp:97.2F, RR:16/min, Ht-cm: 177.8, Wt-k.8 kg. * Examination: ???General Examination: ???This is a middle aged male. Alert and [...] atrophy noted. Therapeutic Interventions: Assessment: * Assessment: 1.?Peroneal tendinitis of le ft lower extremity - M76.72 (Primary)?2.?Subluxation of peroneal tendon of left foot - S93.332A? Plan: * Treatment: 2.?Subluxation of peroneal t endon of left foot?Imaging: X ray : Foot, [...] He otherwise can follow back as needed. ?? * Procedures:?LEFT FOOT AND ANKLE RADIOGRAPHS 02/27/2024 [...] or soft tissue calcifications. ? * Procedure Codes:?73295 X-RAY EXAM OF FOOT 3 Views, Modifiers: LT * Billing Information: * Visit Code:? 98725 Office Visit, New Pt., Level 3. * Procedure Codes:? 57524 X-RAY EXAM OF FOOT 3 Views. Modifiers: LT * Sign off status: Completed true * Provider:Kim Blair DPM Date:?02/26 Generated for Skip mclean/Margoth/Antoniaitting on:?06/08/2024 09:33 AM EST History and Physical Notes * Examination Category [...]
--- OUTSIDE RECORDS SUMMARY | 2024-06-08 09:33 | XMS_ITS ---
Author Organization [facility] Address [address] [address] Care Team Providers Care Supervisor Matrix Name Role Phone AdryanchynaUmang Primary Care Provider JOSE Ridley Unavailable [phone] REASON FOR VISIT Medical Records Encounters Encounter Location Date Provider Diagnosis [facility] [address] [address] 12/15/2023 JOSE VALENZUELA Plan Of Treatment No Information Progress Notes * Polo JAINDOB:1980 (43 yo M)Acc No.[id number]:12/15/2023 Patient:?Polo JAIN :1980???Age:43 Y???Sex:Male Phone: Address:[address] [place] [address] * true * Date:? Generated for Skip mclean/Margoth/eTransmitting on:?06/08/2024 09:33 AM EST
[2024-06-08 11:52] VITALS: BP 100/70; PULSE 89; RESP 17; TEMP 36.7; O2SAT 98
--- NOTE | 2024-06-08 11:52 | MHC.OFFWIV ---
Intake Vital Signs 06/08/24 11:52 Height 5 ft 10 in Weight 209 lb BMI 30.0 BP 100/70 Blood Pressure Location Lt brachial Position Sitting Respiration 17 Pulse 89 Pulse Source Pulse Oximeter Temp 98.0 F Temp Source Oral Pulse Oximetry (%) 98 Oxygen Delivery Method Room Air Intake Visit Reasons: EP ?sinus/strep [phone] Intake Note: Pt is here today c/o sinus pressure/ sore throat x3days Patient Tobacco Use Status: Never used Tobacco Allergies No Known Allergies Allergy (Verified 06/08/24 11:52) HPI EP ?sinus/strep [phone] HPI Details In his a 44-year-old male comes to the walk-in clinic frontal headache, sinus pressure, nasal and sinus congestion, and cough along with sore throat for the last few days. He states that he was sick this winter with pneumonia and norovirus, but daughter recently got the flu and he did not end up getting it. He is baseline healthy, with no underlying immuno compromising factors reported. He has chills, and myalgias, but no documented fever, and no nausea vomiting or diarrhea reported, or dizziness or weakness, vertigo, ear pain, otic discharge, coughing fits or shortness of breath, chest pain, or other significant associated symptoms. [facility] Medical History Subluxation of peroneal tendon of left foot Peroneal tendonitis Physical exam Surgical History No pertinent past surgical history Family History Father HTN (hypertension) Cancer of prostate Mother No problems noted. Brother No problems noted. Sister No problems noted. Social History Housing: House Alcohol intake: current Alcohol intake frequency: holidays/special occasions only Patient Tobacco Use Status: Never used Tobacco e-Cigarette/Vaping Use: Never Used Second Hand Smoke Exposure: No service: No Current occupational status: employed Cognitive needs: No Hearing needs: No Vision needs: No Review of Systems Const All systems reviewed & are unremarkable except as noted in HPI and below Physical Exam Vital Signs: Last Vital Signs Temp 98.0 F 06/08/24 11:52 Pulse 89 06/08/24 11:52 Resp 17 06/08/24 11:52 BP 100/70 06/08/24 11:52 Pulse Ox 98 06/08/24 11:52 Oxygen Delivery Method Room Air 06/08/24 11:52 BMI result Body Mass Index 30.0 Const General: cooperative, healthy appearing, comfortable, no acute distress, alert, awake, Physically active and well groomed; No anxious, diaphoretic, ill appearing, intoxicated appearing or poor hygiene Nutritional Appearance: average body habitus Orientation/consciousness: oriented to person HEENT Head: Yes normal to inspection, Yes normocephalic and Yes atraumatic Ears: hearing grossly normal bilaterally, external ears normal, TM's normal bilaterally and EAC's normal General nose exam: Normal external nose present, Abnormal mucous membranes and turbinates present and Nasal discharge present Face and sinus: Yes face symmetric, No ecchymosis, No erythema, No edema, No fluctuance, No maxillary instability and Yes sinus tenderness Mouth: Normal oral and palatal mucosa present, lip normal and tongue normal Throat: Yes uvula midline, Yes abnormal tonsil (mildly erythematous bilaterally), No peritonsillar mass, Yes postnasal drainage, No uvular edema and No cobblestoning Eyes General: appearance normal, both eyes and all related structures Chest Chest palpation & inspection: normal palpation of entire chest wall Resp Effort & Inspection: normal respiratory effort, able to speak in complete sentences, no audible wheezes, no cough, no grunting, not labored, no nasal flaring, no retractions and symmetric chest movement Auscultation: clear to auscultation bilaterally, no crackles, no rales, no rhonchi, no wheezes, lung sounds not diminished and No rub present Cardio Palpation: normal PMI Rate: regular rate Rhythm: regular rhythm Heart sounds: S1 normal heart sound present and S2 normal heart sound present Skin Other: Good color, warm and dry Neuro General: oriented to person Psych Appearance: grossly normal Mental Status: mental status grossly normal Speech and movement: Normal speech and movement present Affect: normal affect Attitude: cooperative Thought process: Normal thought process present Insight: Good insight present (Psych) Judgement: Good judgement present (Psych) Results AMB Rapid Strep AMB Rapid Strep Negative Last Edit by Jen Colón CMA on 06/08/24 12:11 Results Reviewed Results Reviewed: Laboratory Last Values Strep Scn [facility] Clinic Negative 06/08/24 12:09 Assessment & Plan Assessment & Plan (1) Sinusitis: Code(s): J32.9 - Chronic sinusitis, unspecified Qualifiers: Sinusitis location: frontal Chronicity: acute Recurrence: not specified as recurrent Qualified Code(s): J01.10 - Acute frontal sinusitis, unspecified Plan Patient is a 44-year-old male, with no immuno compromising factors, who comes to the walk-in clinic complaining of acute onset 3 days ago of nasal and sinus congestion and pressure, and productive cough. He starting to report systemic symptoms of chills and myalgias, and reports that the consistency of his mucus is already thick like peanut butter . It is possible he is having an acute bacterial sinusitis, although no documented fevers, although this could be due to taking Tylenol and ibuprofen for the sinus pressure. Flu COVID and RSV results pending. Will write him for a course of doxycycline, as he had a recent course amoxicillin when he had pneumonia and had moderate loose stools and GI distress. He can continue the ibuprofen and Tylenol as needed for the pressure. He knows to monitor symptoms and follow-up if they persist or worsen, or go to the emergency department with worrisome symptoms. Orders: Orders AMB Rapid Strep Screen 06/08/24 Z13.9 - Encounter for screening, unspecified SARS-CoV2/FLU/RSV 06/08/24 J06.9 - Acute upper respiratory infection, unspecified Medications: New doxycycline monohydrate 100 mg PO BID 14 caps 0RF 7 days Coding Level of Care Code Est Pt Level 4 (65703) Diagnoses Acute frontal sinusitis, recurrence not specified J01.10 Sinusitis location: frontal Chronicity: acute Recurrence: not specified as recurrent
== END 2024-06-08 12:41 | disposition home or self-care (01) ==
PROVIDERS: PCP Nurse Practitioner Family; Visit Provider Physician Assistant Medical
DX: J01.10 Acute frontal sinusitis, unspecified (principal)

== ENCOUNTER 2024-06-08 09:31 | Outpatient (REF) | payer OTHER, SELFPAY ==
[2024-06-08 15:50] LABS: Influenza A PCR NEGATIVE (Negative); Influenza B PCR NEGATIVE (Negative); Resp Syncy Virus RNA Qual PCR NEGATIVE (Negative); SARS COV2 PCR INHOUSE NEGATIVE (Negative)
== END 2024-06-08 09:32 | disposition home or self-care (01) ==
LOC: HO.LNP 09:31
PROVIDERS: PCP Nurse Practitioner Family; Visit Provider Physician Assistant Medical
DX: J01.10 Acute frontal sinusitis, unspecified (principal); J06.9 Acute upper respiratory infection, unspecified
CPT/HCPCS: 0241U; 87880